=== PATIENT | male | born 1945 | race Two or more races ===

== ENCOUNTER 2023-03-01 15:58 | Emergency (ER) | payer OTHER ==
[~2023-03-01] VITALS: Ht 162.6 cm; Wt 75.5 kg
[2023-03-01 16:52] VITALS: BP 163/75; PULSE 75; RESP 18; O2SAT 96
[2023-03-01] MEDS ORDERED: traMADol HCL 50 MG TAB PO ONE (18:45)
== END 2023-03-01 19:11 | disposition left against medical advice (07) ==
LOC: ER 15:58
DX: M79.602 Pain in left arm (principal); Z53.21 Procedure and treatment not carried out due to patient leaving prior to being seen by health care provider

== ENCOUNTER 2023-03-15 11:55 | Emergency (ER) | payer OTHER, MEDICAID ==
[~2023-03-15] VITALS: Ht 172.7 cm; Wt 75.7 kg
[2023-03-15 13:49] LABS: Basophils # (auto) 0 10 ^3/uL (0-0.2); Basophils % (auto) 0.5 % (0.0-2.0); Eosinophils # (auto) 0 10 ^3/uL (0-0.8); Eosinophils % (auto) 0.5 % (0.0-7.0); Hematocrit 40.7 % (41.0-53.0); Hemoglobin 13.5 g/dL (13.5-17.5); Lymphocytes # (auto) 1.5 10 ^3/uL (0.4-5.4); Mean Corpuscular Hemoglobin 29.5 pg (28.0-32.0); Mean Corpuscular Hgb Conc. 33.1 g/dL (32.0-36.0); Mean Corpuscular Volume 89.3 fL (80.0-100.0); Monocytes # (auto) 0.6 10 ^3/uL (0-1.3); Monocytes % (auto) 8.7 % (0.0-12.0); Neutrophils # (auto) 4.5 10 ^3/uL (1.6-8.6); Neutrophils % (auto) 67.3 % (37.0-80.0); Red Blood Cells 4.56 10^6/uL (4.5-5.90); White Blood Cell 6.7 10^3/uL (4.4-10.8)
[2023-03-15 14:11] LABS: Alanine Aminotransferase 23 U/L (7-40); Albumin 4.4 g/dL (3.2-4.8); Alkaline Phosphatase 113 U/L (46-116); Anion Gap 6 (5-15); Aspartate Aminotransferase 29 U/L (13-40); BUN/Creatinine Ratio 21.1 (10.0-20.0); Bilirubin, Total 0.6 mg/dL (0.2-1.0); Blood Urea Nitrogen 15 mg/dL (9-23); Calcium 9.7 mg/dL (8.7-10.4); Carbon Dioxide 30 mmol/L (20-30); Chloride 101 mmol/L (98-107); Glucose 222 mg/dL (74-106); Potassium 3.7 mmol/L (3.5-5.1); Sodium 137 mmol/L (136-145); Total Protein 6.9 g/dL (5.7-8.2)
[2023-03-15] MEDS ORDERED: cloNIDine HCL 0.1 MG TAB PO ONE ×3 (15:00→17:00)
[2023-03-15] MEDS ORDERED: cloNIDine HCL 0.1 MG TAB ONE ×2 (16:00→17:05)
[2023-03-15 16:53] VITALS: TEMP 97.6
[2023-03-15 17:40] VITALS: BP 184/91; PULSE 67; RESP 18; O2SAT 98
== END 2023-03-15 17:41 | disposition home or self-care (01) ==
LOC: ER 11:55
DX: I10 Essential (primary) hypertension (principal); E11.65 Type 2 diabetes mellitus with hyperglycemia; M54.2 Cervicalgia
CPT/HCPCS: 36415; 71046; 80053; 83036; 83880; 84484; 85025; 93005

== ENCOUNTER 2023-04-18 13:23 | Emergency (ER) | payer OTHER, MEDICAID ==
[~2023-04-18] VITALS: Ht 162.6 cm; Wt 72.7 kg
[2023-04-18] MEDS ORDERED: HYDROcodone-ACET 10/325MG TAB PO ONE (14:30)
[2023-04-18 14:50] VITALS: BP 144/80; PULSE 83; RESP 16; TEMP 98; O2SAT 96
[2023-04-18] MEDS ORDERED: TRAM50TA2 PO (15:54)
[2023-04-18] MEDS ORDERED: ACET500T58 PO (15:54)
== END 2023-04-18 16:14 | disposition home or self-care (01) ==
LOC: ER 13:23
DX: M47.812 Spondylosis without myelopathy or radiculopathy, cervical region (principal); M25.512 Pain in left shoulder; E11.9 Type 2 diabetes mellitus without complications; I10 Essential (primary) hypertension
CPT/HCPCS: 72040; 73030